=== PATIENT | female | born 1940 | race African-American/Black ===

== ENCOUNTER 2019-11-03 13:06 | Inpatient (IN) | payer MEDICARE, MEDICAID ==
[~2019-11-03] VITALS: Ht 165.1 cm; Wt 62.6 kg
[2019-11-03] MEDS ORDERED: PANTOPRAZOLE SODIUM 40 MG/VIAL IV STA (13:24)
[2019-11-03 15:01] LABS: BASOPHILS % 0.9 % (0.0-2.0); EOSINOPHILS % 0.5 % (0.0-5.0); HEMATOCRIT. 40.6 % (36.0-48.0); HEMOGLOBIN. 13.4 g/dL (12.0-16.0); LYMPHOCYTES % 35.9 % (20.0-50.0); MEAN CORPUSCULAR HEMOGLOBIN 30.5 pg (28.0-32.0); MEAN CORPUSCULAR VOLUME 92.2 fL (81.0-99.0); MEAN PLATELET VOLUME 8.9 fl (7.4-10.4); MONOCYTES % 6.8 % (2.0-8.0); NEUTROPHILS % 55.9 % (40.0-76.0); PLATELET 217 x1000/uL (130-400); RED BLOOD CELL COUNT 4.41 mill/uL (4.2-5.4); RED CELL DISTRIBUTION WIDTH 13.9 % (11.6-14.6)
[2019-11-03 15:03] LABS: CHLORIDE 108 mEq/L (98-107)
[2019-11-03 15:42] LABS: INR 1.1; PARTIAL THROMBOPLASTIN TIME 30.1 sec (23.4-31.0); PROTHROMBIN TIME 11.4 sec (9.6-11.0)
[2019-11-03 17:09] LABS: CLARITY URINE CLEAR (CLEAR); COLOR URINE YELLOW (YELLOW); KETONES URINE TRACE (NEGATIVE); LEUKOCYTE ESTERASE URINE 1+ (NEGATIVE); NITRITE URINE NEGATIVE (NEGATIVE); OCCULT BLOOD URINE NEGATIVE (NEGATIVE); PH URINE 7.5 (4.5-8.0); PROTEIN URINE NEGATIVE (NEGATIVE); UROBILINOGEN URINE 0.2 E.U./dL (0.2-1.0)
[2019-11-03] MEDS ORDERED: ACETAMINOPHEN 325MG TABLET PO PRN (18:45)
[2019-11-03] MEDS ORDERED: DOCUSATE SODIUM 100MG CAPSULE PO PRN (18:45)
[2019-11-03] MEDS ORDERED: MAGNESIUM/ALUMINUM HYDROXIDE/SIMETHICONE 30ML UDC PO PRN (18:45)
[2019-11-03] MEDS ORDERED: HYDROCODONE/ACETAMINOPHEN 5/325MG TABLET PO PRN (18:45)
[2019-11-03] MEDS ORDERED: NA PHOS,M-B/NA PHOS,DI-BA ENEMA 118ML PR PRN (18:45)
[2019-11-03] MEDS ORDERED: CLONIDINE 0.1MG TABLET PO PRN (18:45)
[2019-11-03] MEDS ORDERED: ONDANSETRON HCL 4MG/2ML INJ IV PRN (18:45)
[2019-11-03 20:00] VITALS: BP 153/99
[2019-11-03 20:35] VITALS: BP_SYST 153; BP_DIAS 100; BP_DIAS 99
[2019-11-03] MEDS ORDERED: ASPI-1158 PO (23:31)
[2019-11-03] MEDS: SODIUM CHLORIDE 0.45% 1,000 ML IV SCH (23:51)
[2019-11-04] VITALS: BP 157/96
[2019-11-04 04:00] VITALS: BP 106/76
[2019-11-04 07:28] LABS: BASOPHILS % 0.3 % (0.0-2.0); EOSINOPHILS % 2.3 % (0.0-5.0); HEMATOCRIT. 30.9 % (36.0-48.0); HEMOGLOBIN. 10.1 g/dL (12.0-16.0); LYMPHOCYTES % 48.5 % (20.0-50.0); MEAN CORPUSCULAR HEMOGLOBIN 29.9 pg (28.0-32.0); MEAN CORPUSCULAR VOLUME 91.2 fL (81.0-99.0); MEAN PLATELET VOLUME 8.5 fl (7.4-10.4); MONOCYTES % 11.2 % (2.0-8.0); NEUTROPHILS % 37.7 % (40.0-76.0); PLATELET 175 x1000/uL (130-400); RED BLOOD CELL COUNT 3.39 mill/uL (4.2-5.4); RED CELL DISTRIBUTION WIDTH 13.9 % (11.6-14.6)
[2019-11-04 07:33] LABS: CHLORIDE 110 mEq/L (98-107)
[2019-11-04 08:00] VITALS: BP 139/80
[2019-11-04 12:28] LABS: TOTAL IRON BINDING CAPACITY 271 ug/dL (250-450)
[2019-11-04] MEDS: DOCUSATE SODIUM SUGAR FREE 100MG/10ML UDC NG SCH ×2 (13:17→21:00)
[2019-11-04] MEDS: SODIUM CHLORIDE 0.45% 1,000 ML IV SCH (13:19)
[2019-11-04 16:00] VITALS: BP 140/80
[2019-11-04 18:56] LABS: HEMATOCRIT 33.4 % (36.0-48.0); HEMOGLOBIN 11.2 g/dL (12.0-16.0)
[2019-11-04 20:00] VITALS: BP 117/73
[2019-11-05] VITALS: BP 139/80
[2019-11-05] MEDS: SODIUM CHLORIDE 0.45% 1,000 ML IV SCH (00:13)
[2019-11-05 04:00] VITALS: BP 136/78
[2019-11-05 08:00] VITALS: BP 134/77
[2019-11-05] MEDS: DOCUSATE SODIUM SUGAR FREE 100MG/10ML UDC NG SCH (09:00)
[2019-11-05] MEDS ORDERED: HYDR30CR80 TP (11:46)
[2019-11-05] MEDS ORDERED: ATOR20TA MT (11:46)
[2019-11-05 12:00] VITALS: BP 109/49
[2019-11-05 12:13] VITALS: BP 109/49
[2019-11-05] MEDS ORDERED: ATORVASTATIN CALCIUM 20MG TABLET PO SCH (21:00)
== END 2019-11-05 13:15 | disposition home or self-care (01) | DRG 378 ==
LOC: ER 13:06 → EDBEDREQ 15:24 → 6EST 15:51 → EDBEDREQ 16:36 → ENRESERV 18:34
PROVIDERS: ADMIT Hospitalist; ATTEND Hospitalist
DX: K92.2 Gastrointestinal hemorrhage, unspecified (principal); D62 Acute posthemorrhagic anemia; I25.10 Atherosclerotic heart disease of native coronary artery without angina pectoris; I50.9 Heart failure, unspecified; I11.0 Hypertensive heart disease with heart failure; K80.20 Calculus of gallbladder without cholecystitis without obstruction; K64.8 Other hemorrhoids; K59.00 Constipation, unspecified; E78.5 Hyperlipidemia, unspecified
CPT/HCPCS: 36415; 74176; 80053; 81003; 82728; 83540; 83550; 85014; 85018; 85025; 86850; 86900; 93005; 93970; 99285; C9113

== ENCOUNTER 2019-12-19 13:00 | Emergency (ER) | payer MEDICARE, MEDICAID ==
[~2019-12-19] VITALS: Ht 167.6 cm; Wt 83.0 kg
[~2019-12-19 13:00] MED LIST: ASPI-1158 PO; ATOR20TA MT; HYDR30CR80 TP
[2019-12-19] MEDS ORDERED: ACETAMINOPHEN 325MG TABLET PO ONE (15:30)
[2019-12-19] MEDS ORDERED: TETANUS, DIPHTHERIA, PERTUSSIS VAC/PF 0.5ML (>7YR OLD) IM ONE (15:30)
[2019-12-19 16:36] VITALS: BP 183/99
== END 2019-12-19 16:37 | disposition home or self-care (01) ==
LOC: ER 14:14
DX: M79.672 Pain in left foot (principal); Z79.82 Long term (current) use of aspirin; W22.8XXA Striking against or struck by other objects, initial encounter; Y93.89 Activity, other specified; Y92.018 Other place in single-family (private) house as the place of occurrence of the external cause
CPT/HCPCS: 73630; 90471; 90715; 99283

== ENCOUNTER 2021-02-11 10:58 | Emergency (ER) | payer MEDICARE, MEDICAID ==
[~2021-02-11] VITALS: Ht 165.1 cm; Wt 79.0 kg
[~2021-02-11 10:58] MED LIST changes: -ASPI-1158 PO; +ASPI-1406 PO
[2021-02-11 13:11] LABS: CLARITY URINE CLEAR (CLEAR); COLOR URINE YELLOW (YELLOW); KETONES URINE NEGATIVE (NEGATIVE); LEUKOCYTE ESTERASE URINE NEGATIVE (NEGATIVE); NITRITE URINE NEGATIVE (NEGATIVE); OCCULT BLOOD URINE NEGATIVE (NEGATIVE); PH URINE 7.5 (4.5-8.0); PROTEIN URINE NEGATIVE (NEGATIVE); SPECIFIC GRAVITY URINE 1.009 (1.005-1.030); UROBILINOGEN URINE 0.2 E.U./dL (0.2-1.0)
[2021-02-11 15:01] VITALS: BP 162/92
== END 2021-02-11 15:36 | disposition home or self-care (01) ==
LOC: ER 12:08
DX: K62.89 Other specified diseases of anus and rectum (principal); I10 Essential (primary) hypertension; E78.5 Hyperlipidemia, unspecified; Z60.2 Problems related to living alone
CPT/HCPCS: 81003; 99283

== ENCOUNTER 2024-06-08 11:32 | Emergency (ER) | payer MEDICARE, MEDICAID ==
[~2024-06-08] VITALS: Ht 165.1 cm; Wt 53.0 kg
[2024-06-08 11:33] VITALS: PULSE 104; RESP 14; O2SAT 98
[2024-06-08 11:43] VITALS: BP 180/97; TEMP 36.9; O2SAT 99
[2024-06-08] MEDS ORDERED: IBUP-2029 MT (15:01)
== END 2024-06-08 16:01 | disposition home or self-care (01) ==
LOC: ER 11:32
DX: S60.222A Contusion of left hand, initial encounter (principal); M79.89 Other specified soft tissue disorders; I10 Essential (primary) hypertension; Z79.899 Other long term (current) drug therapy; Z79.82 Long term (current) use of aspirin; W19.XXXA Unspecified fall, initial encounter; Y93.89 Activity, other specified; Y92.89 Other specified places as the place of occurrence of the external cause; Y99.8 Other external cause status
CPT/HCPCS: 73110; 73120; 99284

== ENCOUNTER 2025-01-19 10:41 | Emergency (ER) | payer MEDICAID ==
[~2025-01-19] VITALS: Ht 162.6 cm; Wt 75.0 kg
[~2025-01-19 10:41] MED LIST changes: +IBUP-1455 MT
[2025-01-19 10:57] VITALS: TEMP 36.8; O2SAT 99
[2025-01-19] MEDS ORDERED: LIDOCAINE 5% PATCH TOP SCH (11:30)
[2025-01-19 12:17] VITALS: TEMP 98.3
[2025-01-19] MEDS ORDERED: TOPUD MT (12:17)
[2025-01-19] MEDS: ACETAMINOPHEN 500MG TABLET PO ONE (12:17)
[2025-01-19] MEDS: LIDOCAINE 5% PATCH TOP SCH (12:17)
[2025-01-19 13:19] VITALS: BP 144/89; PULSE 69; RESP 12; O2SAT 100
== END 2025-01-19 13:21 | disposition home or self-care (01) ==
LOC: ER 10:41
DX: S40.021A Contusion of right upper arm, initial encounter (principal); I10 Essential (primary) hypertension; Z79.82 Long term (current) use of aspirin; Z79.899 Other long term (current) drug therapy; Y09 Assault by unspecified means; Y93.89 Activity, other specified; Y92.89 Other specified places as the place of occurrence of the external cause; Y99.8 Other external cause status
CPT/HCPCS: 73060; 99283